=== PATIENT | female | born 1980 | race American Indian/Alaskan Native ===

== ENCOUNTER 2019-09-12 13:12 | Emergency (ER) | payer SELFPAY ==
[2019-09-12 13:35] VITALS: BP 139/95
--- NOTE | 2019-09-12 13:38 | Emergency Department Report ---
Chief Complaint: Laceration/Recheck/Suture Stated Complaint: CHECK IRON/RT LEG SORE Time Seen by Provider: 09/12/19 13:31 - HPI History of Present Illness: This is a 38 y.o. F. that presents to the ER to have her iron checked and wound to right thigh. Patient states she was diagnosed with anemia several years ago and wanted to make sure she was taking the correct iron tablets. Patient also reports a scabbed wound to right thigh from a tattoo 4 to 5 months ago. States wound never drained, swelling, or warmth to the area. Reports crusting center tattoo. She wanted to have the scab removed. She denies SOB, palpitations, chest pain, redness, swelling, warmth, p aresthesias, or weakness. - ROS Review of Systems: ROS: Stated complaint: Check iron and wound to right thigh Other details as noted in HPI Comment: All other systems reviewed and negative - Exam Vital Signs: Vital Signs 09/12/19 13:32 Temperature 98.3 F Pulse Rate 73 Respiratory 18 Rate Blood Pressure 139/95 O2 Sat by Pulse 95 Oximetry Physical Exam: - General Limitations: No Limitations General appearance: alert, in no apparent distress - HEENT HEENT exam: Normocephalic. Atraumatic. Extraocular motions are intact. Patient has moist mucous membranes. - Neck Neck exam: Present: normal inspection, full ROM. Absent: lymphadenopathy - Respiratory Respiratory exam: Present: normal lung sounds bilaterally. Absent: respiratory distress - Cardiovascular Cardiovascular Exam: Present: regular rate, normal rhythm. Absent: systolic murmur, diastolic murmur, rubs, gallop - GI/Abdominal GI/Abdominal exam: Present: soft, normal bowel sounds, non-tender to palpation - Extremities Exam Extremities exam: Present: normal inspection - Back Exam Back exam: Present: normal inspection - Neurological Exam Neurological exam: Present: alert, oriented X3 - Psychiatric Psychiatric exam: Present: normal affect, normal mood - Skin Skin exam: Present: 1-2 cm keloid center right thigh tattoo, no erythema, nontender, no swelling, warm, dry, intact, normal color. Absent: rash MSE screening note: Focused history and physical exam performed. Due to findings the following was ordered: ED Medical Decision Making - Medical Decision Making This is a 38-year-old female who presents to the emergency room to have her iron checked and wound to right thigh. Vitals are stable and patient in no acute distress. There is a 1 to 2 cm keloid center healed tattoo to right anterior th igh. No signs of infection. Denies chest pain, shortness of breath, palpitations, dizziness, or weakness. At this time there is no concerns of acute trauma. This is a nonemergent complaint. Patient given referrals to primary care and dermatology for continued care. Patient discharged home stable with strict return instructions. ED Disposition for MSE Disposition: MED SCREENING EXAM-LEFT Is pt being admited?: No Condition: Stable Referrals: TAMI CHOI MD [Staff Physician] - 3-5 Days [facility] [Provider Group] - 3-5 Days [facility] [Outside] - 3-5 Days [facility] [Outside] - 3-5 Days Time of Disposition: 14:02
== END 2019-09-12 14:22 | disposition left against medical advice (07) ==
LOC: ED 13:12
DX: S70.921A Unspecified superficial injury of right thigh, initial encounter (principal); D64.9 Anemia, unspecified; X58.XXXA Exposure to other specified factors, initial encounter; Y93.89 Activity, other specified; Y92.89 Other specified places as the place of occurrence of the external cause; Y99.8 Other external cause status
CPT/HCPCS: 99281

== ENCOUNTER 2020-09-09 12:18 | Emergency (ER) | payer OTHER ==
[2020-09-09 12:39] VITALS: BP 128/95
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
== END 2020-09-09 13:30 | disposition home or self-care (01) ==
LOC: ED 12:18
DX: S39.012A Strain of muscle, fascia and tendon of lower back, initial encounter (principal); Z98.890 Other specified postprocedural states; V49.49XA Driver injured in collision with other motor vehicles in traffic accident, initial encounter; Y92.410 Unspecified street and highway as the place of occurrence of the external cause; Y93.89 Activity, other specified; Y99.8 Other external cause status
CPT/HCPCS: 99282

== ENCOUNTER 2020-10-11 13:30 | Emergency (ER) | payer OTHER ==
[2020-10-11 13:40] VITALS: BP 154/104
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
== END 2020-10-11 15:05 | disposition left against medical advice (07) ==
LOC: ED 13:30
DX: M54.5 Low back pain (principal); Z53.21 Procedure and treatment not carried out due to patient leaving prior to being seen by health care provider